=== PATIENT | female | born 1935 | race Caucasian/White ===

== ENCOUNTER 2016-11-24 21:33 | Inpatient (IN) | payer MEDICARE, OTHER ==
[2016-11-24] MEDS ORDERED: ALUMINUM & MAGNESIUM HYDROXIDE 30 ML UD PO ONE (22:22)
[2016-11-24] MEDS ORDERED: PANTOPRAZOLE SODIUM IV 40 MG VIAL IV ONE (22:22)
[2016-11-24] MEDS ORDERED: ONDANSETRON INJ 4 MG/2 ML VIAL IV ONE (22:22)
[2016-11-24] MEDS ORDERED: LACTATED RINGERS 1,000 ML IVS ONE (22:23)
--- NOTE | 2016-11-24 22:52 | RAD ---
EXAM DESCRIPTION: XR ABDOMEN 2 VIEWS SUPINE ERECT CLINICAL HISTORY: n/v COMPARISON: None. FINDINGS: Frontal view of the chest and supine and upright images of the abdomen were submitted. Cardiac silhouette is within normal limits. There is no focal parenchymal or pleural disease. There are old left rib fractures. There is atherosclerosis. Patient is rotated to the left. There is no free air in the abdomen. There is no evidence of bowel obstruction. There are surgical clips within the left upper quadrant and right upper quadrant. Calcifications within the pelvis may represent phleboliths. IMPRESSION: No acute abnormalities. Electronically signed by: Ismael Veliz 11/24/2016 22:49
[2016-11-24] MEDS ORDERED: traMADol HCL 50 MG TAB PO ONE (22:55)
[2016-11-24] MEDS ORDERED: SOD CHL 3% *HYPERTONIC* 500ML 120 ML IVS ONE (22:56)
[2016-11-24] MEDS ORDERED: cefTRIAXone SODIUM 1 GM in SODIUM CHL 0.9% 50ML MIN-BAG+ 50 ML IVPB ONE (22:56)
[2016-11-24] MEDS ORDERED: cefTRIAXone SODIUM 1 GM VIAL ONE (23:06)
[2016-11-24] MEDS ORDERED: SODIUM CHL 0.9% 50ML MIN-BAG+ 50 ML IVPB ONE (23:07)
[2016-11-25] MEDS ORDERED: PROMETHAZINE HCL INJ 25 MG in SODIUM CHLORIDE 0.9% 50ML 50 ML IVPB ONE (00:13)
[2016-11-25] MEDS ORDERED: SODIUM CHLORIDE 0.9% 50ML 50 ML ONE (00:21)
[2016-11-25] MEDS ORDERED: PROMETHAZINE HCL INJ 25 MG/ML VIAL ONE (00:21)
--- NOTE | 2016-11-25 00:39 | ED.PDOC ---
History of Present Illness - General Chief Complaint: GI Problem Stated Complaint: nausea / vomiting Time Seen by Provider: 11/24/16 22:22 Source: patient Exam Limitations: no limitations - History of Present Illness Initial Comments: The patient is a 81-year-old female presenting to the emergency room from clinic. She is presenting with nausea and vomiting approximately 2-3 hours duration. She went to the clinic today secondary to urinary symptoms and was found t have a urinary tract infection. She thinks she is going up more than 15 times. No real abdominal pain just mainly nausea. She does have a very mild headache. No new medication changes otherwise. No fevers. She has had some back pain for the last week bilaterally she is feeling weak in general. No syncope. Timing/Duration: 24 hours Severity: moderate Improving Factors: nothing Worsening Factors: nothing Associated Symptoms: loss of appetite, malaise, nausea/vomiting, weakness Allergies/Adverse Reactions: Allergies Penicillin G Allergy (Verified 11/24/16 22:35) Procaine [From Novocain] Allergy (Verified 11/24/16 22:35) Home Medications: Ambulatory Orders Aspirin [(None)] 81 mg PO DAILY 08/28/13 Conjugated Estrogens [Premarin] 1.25 mg PO DAILY 08/28/13 Cyanocobalamin [Vitamin B 12] 250 mcg PO 08/28/13 Esomeprazole Magnesium [Nexium] 40 mg PO BID 08/28/13 Fexofenadine HCl [Zenaida Allergy] 60 mg PO DAILY 08/28/13 LORazepam [Ativan] 0.5 mg PO PRN PRN 08/28/13 Ropinirole Hydrochloride [Requip] 1 mg PO DAILY 08/28/13 Sucralfate 1 gm PO DAILY 08/28/13 Telmisartan [Micardis] 80 mg PO DAILY 08/28/13 Review of Systems - Review of Systems Constitutional: States: malaise EENTM: States: no symptoms reported Respiratory: States: no symptoms reported Cardiology: States: no symptoms reported Gastrointestinal/Abdominal: States: nausea, vomiting Genitourinary: States: dysuria, frequency Musculoskeletal: States: no symptoms reported Skin: States: no symptoms reported Neurological: States: headache - very mild All other Systems: No Change from Baseline Past Medical History (General) - Patient Medical History Hx Seizures: No Hx Stroke: No Hx Asthma: No Hx of COPD: No Hx Cardiac Disorders: No Hx Congestive Heart Failure: No Hx Pacemaker: No Hx Hypertension: Yes Hx Thyroid Disease: No Hx Diabetes: No Hx Renal Disease: No Hx MRSA: No Surgical History: appendectomy, cholecystectomy, Hysterectomy - Vaccination History Hx Tetanus, Diphtheria Vaccination: No Hx Influenza Vaccination: Yes Hx Pneumococcal Vaccination: Yes Immunizations Up to Date: Yes - Social History Hx Alcohol Use: No Hx Substance Use Treatment: Yes - Female History Patient is a Female of Child Bearing Age (10 -59 yrs old): No Family Medical History - Family History Mother Family History: No Known Age (years): 83 Living Status: Cause of : old age Hx Cardiac Disease: Yes Physical Exam - Physical Exam General Appearance: Alert, No apparent distress Eye Exam: bilateral normal Ears, Nose, Throat: normal ENT inspection, normal pharynx - mildly dry Neck: non-tender, full range of motion, supple Respiratory: chest non-tender, lungs clear, normal breath sounds, no respiratory distress, no accessory muscle use Cardiovascular/Chest: normal peripheral pulses, regular rate, rhythm, no edema Peripheral Pulses: radial,right: 2+, radial,left: 2+ Gastrointestinal/Abdominal: non tender, soft Rectal Exam: deferred Back Exam: normal inspection, no CVA tenderness Extremity: normal range of motion, non-tender, normal inspection, no pedal edema , normal capillary refill Neurologic: alert, normal mood/affect, oriented x 3 Skin Exam: normal color Comments: Vital Signs - 24 hr 11/24/16 11/24/16 21:56 22:12 Temperature 97.4 F L Pulse Rate [ 84 84 Left Radial] Respiratory 20 20 Rate Blood Pressure 164/67 [Left Arm] O2 Sat by Pulse 96 Oximetry Progress - Progress Progress: 11/25/16 00:40 the patient is a 81-year-old female presenting to the emergency room secondary to nausea and vomiting with a known urinary tract infection. She is found to have significant hyponatremia and hypochloremia. She has received a liter of IV fluids and is starting to receive low-flow hypertonic saline for a total of 120 cc. She will need a repeat Chem-8 in the morning. Symptoms are most likely due to this however she may very well have pyelonephritis. She has been started on Rocephin IV. Zofran and Phenergan are being used to control nausea. GI medications otherwise have been given. Admit for continuation of care. Patient is mildly dehydrated. No evidence of overt sepsis at this time. - Results/Orders Results/Orders: Laboratory Tests 11/24/16 11/24/16 22:00 22:32 WBC 9.2 RBC 4.12 L Hgb 12.1 Hct 35.8 L MCV 87.1 MCH 29.3 MCHC 33.8 RDW 13.1 Plt Count 253 MPV 8.8 Absolute Neuts (auto) 7.40 H Absolute Lymphs (auto) 1.40 Absolute Monos (auto) 0.40 Absolute Eos (auto) 0.00 Absolute Basos (auto) 0.00 Neutrophils % 79.9 H Lymphocytes % 15.3 L Monocytes % 4.3 Eosinophils % 0.2 L Basophils % 0.3 PT 10.0 INR 0.880 PTT (SP) 29.5 Sodium 119 L* Potassium 4.3 Chloride 86 L Carbon Dioxide 24 Anion Gap 13.3 BUN 8 Creatinine < 0.40 L BUN/Creatinine Ratio 20.0 Random Glucose 117 H Serum Osmolality 237.8 L* Calcium 8.7 Magnesium 1.5 L Total Bilirubin 0.7 AST 25 ALT 17 Alkaline Phosphatase 88 Creatine Kinase 88 CK-MB (CK-2) 4.4 CK-MB (CK-2) % Not Reportable Troponin I < 0.02 Serum Total Protein 6.8 Albumin 3.7 Globulin 3.1 Albumin/Globulin Ratio 1.2 Amylase 86 Lipase 22 Urine Color Yellow Urine Appearance Sl cloudy Urine pH 7.5 Ur Specific [place] 1.025 Urine Protein Negative Urine Glucose (UA) Negative Urine Ketones 80 H Urine Blood Small H Urine Nitrite Positive H Urine Bilirubin Negative Urine Urobilinogen 0.2 Ur Leukocyte Esterase Negative Urine RBC 3-5 H Urine WBC 30-40 H Ur Epithelial Cells 3-5 Urine Bacteria 4+ H abdominal x-ray shows no acute abnormalities. Departure - Departure Clinical Impression: Hyponatremia, Pyelonephritis, acute, Dehydration Vomiting Qualifiers: Vomiting type: unspecified Vomiting Intractability: non-intractable Nausea presence: with nausea Qualifier Code: (R11.2) Nausea with vomiting, unspecified Disposition: Admit Patient Home Medications: Ambulatory Orders Aspirin [(None)] 81 mg PO DAILY 08/28/13 Conjugated Estrogens [Premarin] 1.25 mg PO DAILY 08/28/13 Cyanocobalamin [Vitamin B 12] 250 mcg PO 08/28/13 Esomeprazole Magnesium [Nexium] 40 mg PO BID 08/28/13 Fexofenadine HCl [Zenaida Allergy] 60 mg PO DAILY 08/28/13 LORazepam [Ativan] 0.5 mg PO PRN PRN 08/28/13 Ropinirole Hydrochloride [Requip] 1 mg PO DAILY 08/28/13 Sucralfate 1 gm PO DAILY 08/28/13 Telmisartan [Micardis] 80 mg PO DAILY 08/28/13 Decision To Admit - Decistion To Admit Decision to Admit Reason: Medical Nature Decision to Admit Date: 11/25/16 Decision to Admit Time: 00:42
--- NOTE | 2016-11-25 00:59 | HP ---
SUPERVISING PHYSICIAN: Joe Carballo MD CHIEF COMPLAINT: Nausea and vomiting, low back pain. HISTORY OF PRESENT ILLNESS: This is a 81-year-old, female patient who presented to the Emergency Room. She had been seen in the clinic earlier in the day and was diagnosed with a urinary tract infection and had been given Zofran and Cipro. She was unable to picker and sorter load and unload her Zofran prescription due to cost , but she did get one dose of Cipro in. She had had some back pain around [place], but she thought that was more due to over exertion, but her back has really hurt for the last two to three days and she that is why she went to the clinic earlier on the day prior to admission. After she was in the clinic, her nausea progressively worsened to the point that she had vomited three or four times. She also became very weak. She has had issues in the past with nausea and vomiting when she had a urinary tract infection. In the Emergency Room, she was found to have a urinary tract infection on laboratory exam with positive urine nitrites, small amount of urine blood, 3 to 5 urine RBCs, 30 to 40 urine WBCs and 4+ urine bacteria. Labs showed white count 9.2 with a left shift, hemoglobin 12.1, hematocrit 35.8. Sodium 119, chloride 86, creatinine less than 0.4, serum osmolality 237.8, magnesium 1.5. She was given some 3% saline in the Emergency Room. She was also treated with Rocephin as well as 1 liter of fluid. She was also given Zofran. I was called for admission to the hospital. PAST MEDICAL HISTORY: 1. Gastroesophageal reflux disease. 2. Hypertension. 3. Questionable diastolic heart failure, but her ejection fraction in 2013 was 65%. 4. Osteopenia. 5. Vitamin B12 deficiency. 6. Restless leg syndrome. PAST SURGICAL HISTORY: 1. Appendectomy. 2. Hysterectomy. 3. Cholecystectomy. 4. Bladder suspension. 5. Unknown "stomach wrap" in 2000. OUTPATIENT MEDICATIONS: Per the electronic medical record and awaiting verification. ALLERGIES: NOVOCAIN, PENICILLINS. CODE STATUS: Full code. FAMILY HISTORY: Noncontributory. SOCIAL HISTORY: She is . She smokes two to three cigarettes daily and has for many years. She drinks approximately one drink alcoholic beverage per month. She denies any illicit drug use. REVIEW OF SYSTEMS: GENERAL: Complains of fatigue. Denies fever or weight changes. HEENT: Complains of occasional seasonal allergy symptoms, but denies ear pain, vision changes, or sore throat. RESPIRATORY: Denies wheezing, coughing or shortness of breath. CARDIAC: Denies chest pain, palpitations or tachycardia. GASTROINTESTINAL: As per history of present illness. GENITOURINARY: Complains of dysuria, polyuria and hematuria. MUSCULOSKELETAL: Complains of low back pain. Denies arthralgias, myalgias. SKIN: Denies lesions or rashes. NEUROLOGIC: Complains of headache. Denies dizziness or seizures. PHYSICAL EXAMINATION: VITAL SIGNS: Afebrile. Pulse 76. Blood pressure 95/53. Respirations 18. O2 94% on room air. GENERAL: This is a 81-year-old, female patient who is lying in her hospital bed. She is in no acute distress. HEENT: Normocephalic, atraumatic. Pupils are equal and reactive. Oropharynx is clear. Oral mucous membranes are somewhat dry. NECK: Supple without mass. RESPIRATORY: Clear to auscultation bilaterally. CHEST: There is equal rise and fall of the chest with inspiration and expiration. CARDIAC: Regular rate and rhythm. ABDOMEN: Soft. Very mildly tender diffusely, nondistended. Bowel sounds are positive. BACK: Exam is normal, no CVA tenderness. EXTREMITIES: No cyanosis, clubbing or edema. Pedal pulses are palpable bilaterally. NEUROLOGIC: Awake, alert and oriented times three. SKIN: No lesions or rashes. Skin turgor is somewhat poor. LABORATORY: AM labs showed sodium improve slightly to 121 and chloride is now 91. Serum osmolality is now 241.6. Calcium 8.2, magnesium now 2.6. Chest x- ray shows new bilateral pleural effusions with emphysematous changes to the chest with chronic appearing interstitial changes in the lung bases. Abdominal x-ray shows no acute abnormalities. All other labs and films have been reviewed via the EMR. ASSESSMENT: 1. Pyelonephritis. 2. Nausea and vomiting, mostly likely to #1. 3. Hyponatremia. 4. Hypochloremia. 5. Chronic obstructive pulmonary disease in a chronic smoker. 6. Hypertension. 7. Restless leg syndrome. 8. Bilateral small pleural effusions per x-ray, PLAN: We will admit the patient to the hospital. She will be NPO until she can tolerate some ice chips. As we advance her diet, we will put her on a fluid restriction. I have also started Rocephin for her urinary tract infection. We will monitor cultures as they become available. She also has Protonix for ulcer prophylaxis as well as Lovenox for DVT prophylaxis. I will continue to give her normal saline and IV fluids. We will recheck her sodium this afternoon as well as tomorrow morning. At this point, her lungs sound clear, but may need to do a chest x-ray in the next day or two since she has small bilateral pleural effusions. We will encourage good pulmonary toilet. Encourage smoking cessation. We will continue to monitor the patient closely and follow as needed. #[id number] [facility]
[2016-11-25] MEDS ORDERED: HYDROcodone 5MG/APAP 325MG 1 EA TAB PO PRN (01:18)
[2016-11-25] MEDS ORDERED: ALBUTEROL SULFATE 2.5 MG/3 ML VIAL NEB PRN (01:18)
[2016-11-25] MEDS ORDERED: ONDANSETRON INJ 4 MG/2 ML VIAL IV PRN (01:18)
[2016-11-25] MEDS ORDERED: ACETAMINOPHEN 325 MG TAB PO PRN (01:18)
[2016-11-25] MEDS ORDERED: IV SET AND CAP CHANGE INJ INJ SCH (01:30)
[2016-11-25] MEDS ORDERED: SODIUM CHL 0.9% 50ML MIN-BAG+ 50 ML IVPB ONE ×3 (03:48→20:16)
[2016-11-25] MEDS ORDERED: cefTRIAXone SODIUM 1 GM VIAL ONE ×3 (03:48→20:16)
[2016-11-25] MEDS: SODIUM CHLORIDE 0.9% 1000ML 1,000 ML IVS PRN ×3 (03:49→21:57)
[2016-11-25] MEDS: cefTRIAXone SODIUM 1 GM in SODIUM CHL 0.9% 50ML MIN-BAG+ 50 ML IVPB SCH ×2 (03:50→15:49)
[2016-11-25] MEDS ORDERED: MAGNESIUM SULFATE PREMIX 2GM 2 GM in PREMIX BAG 1 BAG IVPB ONE (06:44)
[2016-11-25] MEDS ORDERED: MAGNESIUM SULFATE PREMIX 2GM 50 ML IVPB ONE (07:24)
--- NOTE | 2016-11-25 07:36 | RAD ---
EXAM DESCRIPTION: XR CHEST 2 VIEWS CLINICAL HISTORY: cough COMPARISON: November 06, 2010 FINDINGS: Two-view chest x-ray shows cardiomediastinal silhouette to be mildly enlarged without pulmonary vascular congestion. The lungs are hyperinflated with chronic appearing increased interstitial markings more prominent in the lower lung mathis similar to previous exam. Mild blunting of the posterior costophrenic angles is seen new from previous exam. Moderate degenerative changes of the spine are seen. Remote left-sided rib fractures are noted. IMPRESSION: New small bilateral pleural effusions are seen. Emphysematous changes to the chest are noted with chronic appearing interstitial changes in the lung bases. Electronically signed by: Don Martin MD 11/25/2016 07:33
[2016-11-25] MEDS: ALBUTEROL SULFATE 2.5 MG/3 ML VIAL NEB SCH ×4 (08:31→20:14)
[2016-11-25] MEDS: ENOXAPARIN SODIUM 40 MG/0.4 ML SYG SUBCU SCH (13:09)
[2016-11-25] MEDS: PANTOPRAZOLE SODIUM IV 40 MG VIAL IV SCH (13:09)
[2016-11-25] MEDS ORDERED: ALUMINUM & MAGNESIUM HYDROXIDE 30 ML UD PO PRN (18:23)
[2016-11-25] MEDS ORDERED: LEVALBUTEROL NEBS 1.25 MG/3 ML VIAL NEB PRN (20:09)
[2016-11-25] MEDS: SODIUM CHLORIDE 0.9% (FLUSH) 10 ML SYG IV PRN (20:52)
[2016-11-26] MEDS ORDERED: LORazepam 0.5 MG TAB PO PRN (02:00)
[2016-11-26] MEDS: cefTRIAXone SODIUM 1 GM in SODIUM CHL 0.9% 50ML MIN-BAG+ 50 ML IVPB SCH ×2 (04:12→16:01)
--- NOTE | 2016-11-26 04:53 | PCM.CORE ---
Physician DVT/VTE - Prophylaxis Currently: Patient already on anticoagulation therapy - Nurse DVT Assessment & Total Each Risk Factor Represents 3 Points: Age over 75 years DVT Assessment Score: 3 - 3-4 High Risk Treatments: Early Ambulation *, Sequential Compression Device
[2016-11-26] MEDS: SODIUM CHLORIDE 0.9% 1000ML 1,000 ML IVS PRN ×2 (06:11→13:40)
[2016-11-26] MEDS ORDERED: SODIUM CHL 0.9% 50ML MIN-BAG+ 50 ML IVPB ONE ×2 (12:10→19:40)
[2016-11-26] MEDS ORDERED: cefTRIAXone SODIUM 1 GM VIAL ONE ×2 (12:10→19:40)
[2016-11-26] MEDS: ENOXAPARIN SODIUM 40 MG/0.4 ML SYG SUBCU SCH (12:16)
[2016-11-26] MEDS: SODIUM CHLORIDE 0.9% (FLUSH) 10 ML SYG IV SCH ×2 (12:21→20:47)
--- NOTE | 2016-11-26 18:47 | PN ---
DATE: 11/26/16 SUPERVISING PHYSICIAN: Chapo Carballo M.D. SUBJECTIVE: The patient looks well this morning. She feels like she is doing much better. She does continue to have some weakness but has not had any nausea or vomiting, and she remains afebrile. OBJECTIVE: VITAL SIGNS: T max 98.6, pulse 74, blood pressure 139/69, respirations 18 showing 95% saturation on room air. I's and O's show a negative balance of 1750, however she has had 5050 out with 3300 in and taking adequate p.o. fluids. Her weight shows to be down from admission of 59.8 to 59.6 today. GENERAL: The patient is resting in bed in no distress. Said she has not had any more nausea. No abdominal discomfort. No CVA tenderness is reported. CHEST: Lungs are clear to auscultation bilaterally. HEART: Regular rate and rhythm. ABDOMEN: Soft, non-tender with positive bowel sounds. EXTREMITIES: No clubbing, cyanosis or edema. NEUROLOGIC: She is alert and oriented times three. LABORATORY: White count is stable at 5.6, hemoglobin and hematocrit 10.5 and 31.3, platelet count is within normal limits at 252,000. Differential shows to be without any shift compared to admission. Chemistries now show a normalized sodium 142 from admission of 119 with potassium being normal at 4.4, chloride is slightly elevated at 113 with BUN 7, creatinine 0.54 with glucose 103, calcium 8.6. Liver functions show to be within normal limits. MICROBIOLOGY: Urine culture collected in the clinic on 11/24, final culture shows a Klebsiella pneumoniae which is sensitive to everything except Ampicillin and Macrobid. Urine culture on admission, final culture shows insignificant normal freddy count. ASSESSMENT: 1. Acute urinary tract infection with concerns for pyelonephritis with initial culture results showing Klebsiella pneumoniae having been treated with Cipro p.o., however, the patient was unable to fully complete therapy requiring parenteral antibiotics to include Rocephin with sensitivity showing sensitive to first, second and third generation cephalosporins with the patient showing some clinical improvement, however requirements for an additional 24 hours of antibiotic therapy prior to transition back to p.o. medication. 2. Nausea and vomiting likely secondary to his underlying urinary tract infection for concern for pyelonephritis. 3. Symptomatic hyponatremia with nausea and vomiting, and weakness on admission now resolved after IV therapy with 3% saline and continued normal saline infusions. 4. Hypochloremia, resolved, now demonstrating hyperchloremia secondary to recent normal saline infusions. 5. Chronic obstructive pulmonary disease in a chronic smoker, stable. 6. Hypertension, stable. 7. Restless leg syndrome. 8. Bilateral small pleural effusions seen on x-ray at time of admission with the patient being asymptomatic. PLAN: The patient will benefit from an additional 24 hours of parenteral antibiotics to include Rocephin and saline locked, and slowly advanced on a diet. She will remain on fluid restriction now that she is adequately rehydrated despite showing a negative fluid balance, but is now adequately taking p.o. medications. She is going to be saline locked and closely monitored. Will encourage continued pulmonary toiletry and smoking cessation. Anticipate transitioning the patient from parenteral antibiotics to p.o. antibiotics in the morning based off sensitivity results and with anticipation at discharge to continue on outpatient treatment therapy. Until then, will continue to monitor the patient closely and treat appropriately. #[id number] [facility]
[2016-11-26] MEDS ORDERED: PANTOPRAZOLE SODIUM TAB 40 MG PO ONE (19:40)
[2016-11-27] MEDS: cefTRIAXone SODIUM 1 GM in SODIUM CHL 0.9% 50ML MIN-BAG+ 50 ML IVPB SCH (03:37)
[2016-11-27] MEDS: SODIUM CHLORIDE 0.9% (FLUSH) 10 ML SYG IV PRN (03:40)
[2016-11-27] MEDS ORDERED: PANTOPRAZOLE SODIUM TAB 40 MG PO SCH (06:30)
[2016-11-27] MEDS ORDERED: SODIUM CHL 0.9% 50ML MIN-BAG+ 0 ML IVPB ONE (07:22)
[2016-11-27] MEDS ORDERED: cefTRIAXone SODIUM 1 GM VIAL ONE (07:22)
[2016-11-27] MEDS: SODIUM CHLORIDE 0.9% (FLUSH) 10 ML SYG IV SCH (09:10)
[2016-11-27 10:20] VITALS: BP 154/77; TEMP 97.9; O2SAT 94
--- NOTE | 2016-11-27 16:51 | DS ---
SUPERVISING PHYSICIAN: [place] Lopez M.D. DISCHARGE DIAGNOSIS: 1. Acute urinary tract infection initially with concerns for pyelonephritis on admission with culture results showing final to be with Klebsiella pneumoniae having been treated with Cipro p.o., with the patient unable to fully complete therapy secondary to nausea and vomiting requiring admission for parenteral antibiotics to include Rocephin with the patient showing good clinical improvement and toleration of antibiotic therapy with the patient being transitioned to p.o. Keflex at time of discharge with no evidence of any pyelonephritis with the patient having no CVA tenderness. She remained afebrile and was showing good clinical improvement. 2. Nausea and vomiting prior to admission felt to be secondary to an underlying either urinary tract infection or possible gastroenteritis versus complications or exacerbation of gastroesophageal reflux disease or secondary to severe hyponatremia. 3. Symptomatic hyponatremia with nausea and vomiting, and weakness on admission questionable secondary to dehydration versus acute excessive water intake with the patient attempting to rehydrate with the onset of nausea and vomiting resolved after IV therapy including 3% saline given in the E. R. and continued IV therapy prior to discharge with the patient transitioned to p.o. fluids without any complications. 4. Hypochloremia secondary to dehydration showing good resolution after normal saline infusions. 5. Chronic obstructive pulmonary disease in a chronic smoker, stable. 6. Hypertension, stable. 7. Restless leg syndrome. 8. Bilateral small pleural effusions seen on x-ray at time of admission with the patient being asymptomatic requiring close followup in the outpatient setting. HISTORY OF PRESENT ILLNESS: Ms. Obrien is a 81-year-old female patient of Dr. Obando that presented to the Emergency Department after she had been seen in the clinic earlier the day of admission and was diagnosed with a urinary tract infection and had been given Zofran and Cipro. 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 She did have some nausea after starting Cipro prior to admission. She had had some back pain around [place] which she thought that was due to over exertion, but her back had really hurt in the last two to three days prior to admission and that is why she presented to the clinic. After she was seen in clinic, her nausea progressively worsened to the point that she had vomited three or four times. She became very weak and has had issues in the past with nausea and vomiting when she had a urinary tract infection. In the Emergency Room, she was found to have a urinary tract infection with laboratory exam with positive urine nitrites, small amount of blood, 3 to 5 urine RBCs, 30 to 40 WBCs and 4+ bacteria. White count showed to be normal with a left shift. She was also noted to have severe hyponatremia with sodium of 119, magnesium was normal at 1.5, serum osmolality 237. She was given 3% saline in the Emergency Room and then started on Rocephin, and admitted to the Medical/Surgical floor for continued treatment and evaluation. LABORATORY: Initial white count was 9.2, at time of discharge was 7.8, hemoglobin and hematocrit were stable at discharge at 10.4 and 31.1, platelet count 240,000. Initial differential did show a left shift. This resolved after treatment and was normal at discharge. Coagulation studies showed to be normal PT and PTT. Chemistries initially on admission did show low sodium at 119 but potassium was 4.3, BUN 8, creatinine less than 0.4 with serum osmolality 237. After treatment with 3% saline and normal saline infusions and a fluid restriction for close I's and O's, the patient's sodium did return to normal and at time of discharge was 135 with potassium 4.2, BUN 6, creatinine 0.4, serum osmolality 267, magnesium 1.5 after replacement and had improved to 2.6. Cardiac enzymes showed to be negative and was less than 0.02, troponin and liver functions all showed to be within normal limits. Urine did show 80 of ketones, small amount of blood, positive nitrites and microscopic exam indicating 3 to 5 RBCs, 30 to 40 WBCs, 3 to 5 epithelials with 4+ bacteria. MICROBIOLOGY: Urine culture final results showing insignificant colony count of mixed freddy. Review of previous records prior to admission from a culture that was obtained in the clinic did show Klebsiella pneumoniae on final report with a sensitivity pattern showing sensitive to all antibiotics except Ampicillin and Macrobid. RADIOLOGY: Abdominal x-ray in the Emergency Department prior to admission per radiology interpretation showed no acute abnormalities. Chest x-ray again per radiology interpretation prior to admission showed small bilateral pleural effusions with emphysematous changes to the chest with chronic appearing interstitial changes of the lung bases. HOSPITAL COURSE: Ms. Obrien is a 81 year-old female patient that was admitted on 11/25/16 from the Emergency Department for severe hyponatremia, weakness and an underlying urinary tract infection with nausea and vomiting as noted in the History of Present Illness. She was given 3% saline in the Emergency Department prior to admission to the floor. This was continued with a normal saline infusion at 125. Her labs did normalize with her showing a positive balance at time of discharge with 857 positive with a total output of 403 and intake of 1260. Previous to that day, she did have a total of 3300 out and 5050 out showing to be more euvolemic at time of discharge and stable. She was started on Rocephin for the underlying urinary tract infection and given Zofran and Phenergan for nausea as needed. She did show good clinical improvement and was felt clinically improved well enough to be discharged to continue with treatment of her underlying urinary tract infection in the outpatient setting. PLAN: The patient was discharged on 11/27/16 to have close clinical followup with her primary care provider, Dr. Carballo, in 7 to 10 days. She was to resume all of her home medications as instructed except the noted changes in her medication regimen including new antibiotics, Keflex, and she was to stop taking Cipro, and take her antibiotics to completion. She was encouraged to take adequate fluids but to be cautious of total daily fluid intake to prevent fluid overload and possible low sodium. She was encouraged to return to the hospital should she have return of her symptoms or no improvement. She was discharged with new prescriptions to include: 1. Promethazine 12.5 mg every 4 hours as needed for nausea, #15. 2. Keflex 500 mg twice daily, #14. She was discharged in stable condition. #[id number] [facility]
[2016-12-15] MEDS: PANTOPRAZOLE SODIUM IV 40 MG VIAL IV SCH (14:39)
== END 2016-11-27 11:41 | disposition home or self-care (01) | DRG 690 ==
LOC: ER 21:33 → MS 11-25 00:58
PROVIDERS: ADMIT Nurse Practitioner Acute Care; ATTEND Nurse Practitioner Family
DX: N39.0 Urinary tract infection, site not specified (principal); E87.1 Hypo-osmolality and hyponatremia; J90 Pleural effusion, not elsewhere classified; E86.0 Dehydration; B96.1 Klebsiella pneumoniae [K. pneumoniae] as the cause of diseases classified elsewhere; K52.9 Noninfective gastroenteritis and colitis, unspecified; K21.9 Gastro-esophageal reflux disease without esophagitis; E87.8 Other disorders of electrolyte and fluid balance, not elsewhere classified; J44.9 Chronic obstructive pulmonary disease, unspecified; F17.210 Nicotine dependence, cigarettes, uncomplicated; I10 Essential (primary) hypertension; G25.81 Restless legs syndrome; Z16.11 Resistance to penicillins; M85.80 Other specified disorders of bone density and structure, unspecified site; E53.8 Deficiency of other specified B group vitamins; Z88.0 Allergy status to penicillin; Z88.4 Allergy status to anesthetic agent; Z79.82 Long term (current) use of aspirin; Z79.899 Other long term (current) drug therapy

== ENCOUNTER → 2017-03-24 | Outpatient (CLI) | payer MEDICARE | END | disposition home or self-care (01) | LOC: GMAM 11:15 | PROVIDERS: ATTEND Family Medicine | DX: D51.9 Vitamin B12 deficiency anemia, unspecified (principal); F41.1 Generalized anxiety disorder ==

== ENCOUNTER → 2017-05-31 | Outpatient (CLI) | payer MEDICARE, OTHER | LOC: GMA 17:59 | PROVIDERS: ATTEND Nurse Practitioner Family | DX: N30.00 Acute cystitis without hematuria (principal) ==

== ENCOUNTER → 2017-09-08 | Outpatient (CLI) | payer MEDICARE, OTHER | END | disposition home or self-care (01) | LOC: GMAM 11:22 | PROVIDERS: ATTEND Family Medicine | DX: D51.9 Vitamin B12 deficiency anemia, unspecified (principal) ==

== ENCOUNTER → 2017-09-13 | Outpatient (CLI) | payer MEDICARE, OTHER | END | disposition home or self-care (01) | LOC: GMAM 16:46 | PROVIDERS: ATTEND Family Medicine | DX: D64.9 Anemia, unspecified (principal) ==

== ENCOUNTER 2017-12-29 23:54 | Emergency (ER) | payer MEDICARE, OTHER ==
[2017-12-30] MEDS ORDERED: LORazepam 0.5 MG TAB PO ONE (00:10)
[2017-12-30] MEDS ORDERED: ONDANSETRON ODT 8 MG TAB SL ONE (00:10)
--- NOTE | 2017-12-30 00:14 | ED.PDOC ---
History of Present Illness - General Chief Complaint: General Stated Complaint: feels gittery, nausea and lugo Time Seen by Provider: 12/29/17 23:57 Source: patient Exam Limitations: no limitations - History of Present Illness Initial Comments: Patient presents feeling jittery since this morning. She has also had nausea this evening She says that she stopped Buspar two days ago and started taking duloxetine today. She has had no rashes nor dyspnea. She says she thinks she has COPD. Has a headache that is intermittent. She describes it as tension and it was at the bridge of her nose then later went to the right temporal area. It has since resolved. Denies any weakness or numbness on any part of her body. Has had previous episodes and has taken lorazepam for those. No other complaints. Timing/Duration: intermittent, other - over the past 12-16 hours Severity: mild Improving Factors: nothing Worsening Factors: nothing Associated Symptoms: denies symptoms, other - see HPI Allergies/Adverse Reactions: Allergies Penicillin G Allergy (Verified 11/24/16 22:35) Procaine [From Novocain] Allergy (Verified 11/24/16 22:35) Home Medications: Ambulatory Orders Aspirin [Baby Aspirin] 81 mg PO DAILY 08/28/13 Telmisartan [Micardis] 80 mg PO DAILY 08/28/13 Buspirone HCl 5 mg PO TID 11/25/16 Hydroxyzine HCl 25 mg PO PRN PRN 11/25/16 Ropinirole Hydrochloride [Ropinirole HCl] 1 mg PO TID 11/25/16 Promethazine HCl 12.5 mg PO Q4HR PRN #15 tab 11/27/16 Duloxetine HCl 30 mg PO DAILY 12/30/17 Esomeprazole Magnesium [Nexium] 40 mg PO BID 12/30/17 Estrogens, Conjugated [Premarin] 1.25 mg PO DAILY 12/30/17 LORazepam [Ativan] 1 tablet PO TID PRN 12/30/17 Past Medical History (General) - Patient Medical History Hx Seizures: No Hx Stroke: No Hx Asthma: No Hx of COPD: Yes Hx Cardiac Disorders: No Hx Congestive Heart Failure: No Hx Pacemaker: No Hx Hypertension: Yes Hx Thyroid Disease: No Hx Diabetes: No Hx Gastroesophageal Reflux: No Hx Renal Disease: No Hx MRSA: No - Vaccination History Hx Tetanus, Diphtheria Vaccination: No Hx Influenza Vaccination: No Hx Pneumococcal Vaccination: Yes Immunizations Up to Date: Yes - Social History Hx Alcohol Use: No Hx Substance Use: No Hx Substance Use Treatment: Yes Hx Depression: Yes Hx Physical Abuse: No Hx Emotional Abuse: No - Female History Patient is a Female of Child Bearing Age (10 -59 yrs old): No Family Medical History - Family History Mother Family History: No Known Age (years): 83 Living Status: Cause of : old age Hx Cardiac Disease: Yes Physical Exam - Physical Exam General Appearance: Alert Eye Exam: bilateral normal Ears, Nose, Throat: normal ENT inspection Neck: non-tender, full range of motion, supple Respiratory: chest non-tender, lungs clear Cardiovascular/Chest: normal peripheral pulses, regular rate, rhythm, no edema Gastrointestinal/Abdominal: normal bowel sounds, non tender, soft Extremity: normal range of motion, non-tender, normal inspection Neurologic: commercial production editor II-XII nml as tested, no motor/sensory deficits, alert Skin Exam: normal color Lymphatic: no adenopathy Progress - Progress Progress: 12/30/17 03:22 Laboratory Tests 12/30/17 12/30/17 12/30/17 00:40 00:40 00:45 WBC 7.8 RBC 4.12 L Hgb 12.4 Hct 36.6 MCV 88.7 MCH 30.0 MCHC 34.0 RDW 13.9 Plt Count 255 MPV 8.8 Absolute Neuts (auto) 6.10 Absolute Lymphs (auto) 1.20 Absolute Monos (auto) 0.40 Absolute Eos (auto) 0.00 Absolute Basos (auto) 0.10 Neutrophils % 78.6 H Lymphocytes % 15.8 L Monocytes % 4.5 Eosinophils % 0.2 L Basophils % 0.9 Sodium 124 L Potassium 4.0 Chloride 91 L Carbon Dioxide 22 Anion Gap 15.0 BUN 11 Creatinine 0.53 L BUN/Creatinine Ratio 20.8 H Random Glucose 141 H Serum Osmolality 251.4 L* Calcium 8.9 Total Bilirubin 0.5 AST 21 ALT 18 Alkaline Phosphatase 75 Serum Total Protein 7.2 Albumin 3.8 Globulin 3.4 Albumin/Globulin Ratio 1.1 Lipase 16 L Urine Color Urine Appearance Urine pH Ur Specific [place] Urine Protein Urine Glucose (UA) Urine Ketones Urine Blood Urine Nitrite Urine Bilirubin Urine Urobilinogen Ur Leukocyte Esterase Urine RBC Urine WBC Ur Epithelial Cells Urine Bacteria Hyaline Casts Urine Mucus Urine Opiates Screen Negative Urine Barbiturates Negative Ur Phencyclidine Scrn Negative U Amphetamin/Meth Scrn Negative U Benzodiazepines Scrn Negative U Cocaine Metab Screen Negative U Cannabinoids Screen Negative 12/30/17 00:45 WBC RBC Hgb Hct MCV MCH MCHC RDW Plt Count MPV Absolute Neuts (auto) Absolute Lymphs (auto) Absolute Monos (auto) Absolute Eos (auto) Absolute Basos (auto) Neutrophils % Lymphocytes % Monocytes % Eosinophils % Basophils % Sodium Potassium Chloride Carbon Dioxide Anion Gap BUN Creatinine BUN/Creatinine Ratio Random Glucose Serum Osmolality Calcium Total Bilirubin AST ALT Alkaline Phosphatase Serum Total Protein Albumin Globulin Albumin/Globulin Ratio Lipase Urine Color Yellow Urine Appearance Clear Urine pH 6.5 Ur Specific [place] 1.025 Urine Protein Trace Urine Glucose (UA) Negative Urine Ketones 80 H Urine Blood Negative Urine Nitrite Negative Urine Bilirubin Negative Urine Urobilinogen 0.2 Ur Leukocyte Esterase Negative Urine RBC 0 Urine WBC 0-1 Ur Epithelial Cells 5-10 Urine Bacteria 1+ Hyaline Casts 3-5 Urine Mucus Small Urine Opiates Screen Urine Barbiturates Ur Phencyclidine Scrn U Amphetamin/Meth Scrn U Benzodiazepines Scrn U Cocaine Metab Screen U Cannabinoids Screen Patient given zofran and ativan. Her nausea resolved and her anxiety resolve. She was also given 1 NS. She was without symptoms upon discharge. Departure - Departure Clinical Impression: Anxiety, Nausea Disposition: Discharge to Home or Self Care Condition: Good Departure Forms: ED Discharge - Pt. Copy, Patient Portal Self Enrollment Diet: resume usual diet Activity: increase activity as tolerated Referrals: Chapo Carballo MD [Primary Care Provider] - 1-2 Weeks Home Medications: Ambulatory Orders Aspirin [Baby Aspirin] 81 mg PO DAILY 08/28/13 Telmisartan [Micardis] 80 mg PO DAILY 08/28/13 Buspirone HCl 5 mg PO TID 11/25/16 Hydroxyzine HCl 25 mg PO PRN PRN 11/25/16 Ropinirole Hydrochloride [Ropinirole HCl] 1 mg PO TID 11/25/16 Promethazine HCl 12.5 mg PO Q4HR PRN #15 tab 11/27/16 Duloxetine HCl 30 mg PO DAILY 12/30/17 Esomeprazole Magnesium [Nexium] 40 mg PO BID 12/30/17 Estrogens, Conjugated [Premarin] 1.25 mg PO DAILY 12/30/17 LORazepam [Ativan] 1 tablet PO TID PRN 12/30/17
[2017-12-30] MEDS ORDERED: SODIUM CHLORIDE 0.9% 500ML 500 ML IVS ONE (01:28)
[2017-12-30] MEDS ORDERED: SODIUM CHLORIDE 0.9% 1000ML 1,000 ML ONE (01:28)
[2017-12-30] MEDS ORDERED: SODIUM CHLORIDE 0.9% 1000ML 500 ML IVS ONE (01:43)
[2017-12-30] MEDS ORDERED: ACETAMINOPHEN 325 MG TAB PO ONE (02:08)
[2017-12-30 03:20] VITALS: BP 125/57; O2SAT 93
[2017-12-30 03:46] VITALS: TEMP 96.7
== END 2017-12-30 03:45 | disposition home or self-care (01) ==
LOC: ER 23:54
DX: R11.0 Nausea (principal); F41.9 Anxiety disorder, unspecified; J44.9 Chronic obstructive pulmonary disease, unspecified; I10 Essential (primary) hypertension; Z79.899 Other long term (current) drug therapy; Z79.82 Long term (current) use of aspirin
CPT/HCPCS: 36415; 80053; 80307; 81001; 83690; 85025; J7030

== ENCOUNTER 2018-01-01 20:57 | Emergency (ER) | payer MEDICARE, OTHER ==
[2018-01-01 21:25] VITALS: TEMP 98.8; O2SAT 100
[2018-01-01] MEDS ORDERED: cloNIDine HCL 0.1 MG TAB PO ONE (21:40)
--- NOTE | 2018-01-01 21:48 | ED.PDOC ---
History of Present Illness - General Chief Complaint: Blood Pressure Problem Stated Complaint: high B/P when she checked it at home Time Seen by Provider: 01/01/18 21:27 Source: patient, RN notes reviewed Exam Limitations: no limitations Additional Information: PT HAS CONCERNS ABOUT HER BLOOD PRESSURE SHE IS ON MICARDIS 80 MG SHE ALSO REPORTS ANXIETY SHE WAS RECENTLY TOLD BY HER RISK OFFICER TO DC BUSPAR SHE THINKS SINCE THEN HER BP IS ACTING UP ? HOWEVER SHE HAS NO SYMPTOMS OF DIZZINESS HEADACHE CHEST PAIN SHORTNESS OF BREATH PERIPHERAL EDEMA NUMBNESS WEAKNESS OF ANY EXTREMITY - History of Present Illness Timing/Duration: 24 hours Severity: mild Improving Factors: nothing Associated Symptoms: denies symptoms Allergies/Adverse Reactions: Allergies Penicillin G Allergy (Verified 11/24/16 22:35) Procaine [From Novocain] Allergy (Verified 11/24/16 22:35) Home Medications: Ambulatory Orders Aspirin [Baby Aspirin] 81 mg PO DAILY 08/28/13 Telmisartan [Micardis] 80 mg PO DAILY 08/28/13 Buspirone HCl 5 mg PO TID 11/25/16 Hydroxyzine HCl 25 mg PO PRN PRN 11/25/16 Ropinirole Hydrochloride [Ropinirole HCl] 1 mg PO TID 11/25/16 Promethazine HCl 12.5 mg PO Q4HR PRN #15 tab 11/27/16 Duloxetine HCl 30 mg PO DAILY 12/30/17 Esomeprazole Magnesium [Nexium] 40 mg PO BID 12/30/17 Estrogens, Conjugated [Premarin] 1.25 mg PO DAILY 12/30/17 LORazepam [Ativan] 1 tablet PO TID PRN 12/30/17 Review of Systems - Review of Systems Constitutional: States: no symptoms reported EENTM: States: no symptoms reported Respiratory: States: no symptoms reported Cardiology: States: no symptoms reported Gastrointestinal/Abdominal: States: no symptoms reported Genitourinary: States: no symptoms reported Musculoskeletal: States: no symptoms reported Skin: States: no symptoms reported Neurological: States: no symptoms reported Endocrine: States: no symptoms reported Hematologic/Lymphatic: States: no symptoms reported Past Medical History (General) - Patient Medical History Hx Seizures: No Hx Stroke: No Hx Asthma: No Hx of COPD: Yes Hx Cardiac Disorders: No Hx Congestive Heart Failure: No Hx Pacemaker: No Hx Hypertension: Yes Hx Thyroid Disease: No Hx Diabetes: No Hx Gastroesophageal Reflux: No Hx Renal Disease: No Hx MRSA: No Surgical History: appendectomy, tonsillectomy, Hysterectomy - Vaccination History Hx Tetanus, Diphtheria Vaccination: No Hx Influenza Vaccination: Yes Hx Pneumococcal Vaccination: Yes - Social History Hx Alcohol Use: No Hx Substance Use: No Hx Substance Use Treatment: Yes Hx Depression: Yes Hx Physical Abuse: No Hx Emotional Abuse: No Family Medical History - Family History Mother Family History: No Known Age (years): 83 Living Status: Cause of : old age Hx Cardiac Disease: Yes Physical Exam - Physical Exam General Appearance: Anxious Eye Exam: bilateral normal Ears, Nose, Throat: hearing grossly normal, normal ENT inspection, normal pharynx Neck: non-tender, full range of motion, supple Respiratory: chest non-tender, lungs clear, normal breath sounds, no respiratory distress, no accessory muscle use Cardiovascular/Chest: normal peripheral pulses, regular rate, rhythm, no edema, no gallop Gastrointestinal/Abdominal: normal bowel sounds, non tender, soft Extremity: normal range of motion, non-tender, normal inspection, no pedal edema , no calf tenderness Skin Exam: normal color Departure - Departure Clinical Impression: Hypertension, Anxiety Disposition: Discharge to Home or Self Care Condition: Good Departure Forms: ED Discharge - Pt. Copy, Patient Portal Self Enrollment Diet: resume usual diet Referrals: Chapo Carballo MD [Primary Care Provider] - 1-2 Weeks Home Medications: Ambulatory Orders Aspirin [Baby Aspirin] 81 mg PO DAILY 08/28/13 Telmisartan [Micardis] 80 mg PO DAILY 08/28/13 Buspirone HCl 5 mg PO TID 11/25/16 Hydroxyzine HCl 25 mg PO PRN PRN 11/25/16 Ropinirole Hydrochloride [Ropinirole HCl] 1 mg PO TID 11/25/16 Promethazine HCl 12.5 mg PO Q4HR PRN #15 tab 11/27/16 Duloxetine HCl 30 mg PO DAILY 12/30/17 Esomeprazole Magnesium [Nexium] 40 mg PO BID 12/30/17 Estrogens, Conjugated [Premarin] 1.25 mg PO DAILY 12/30/17 LORazepam [Ativan] 1 tablet PO TID PRN 12/30/17
[2018-01-01 23:30] VITALS: BP 170/75
== END 2018-01-01 22:38 | disposition home or self-care (01) ==
LOC: ER 20:57
DX: I10 Essential (primary) hypertension (principal); F41.9 Anxiety disorder, unspecified; J44.9 Chronic obstructive pulmonary disease, unspecified; Z79.899 Other long term (current) drug therapy; Z79.82 Long term (current) use of aspirin

== ENCOUNTER → 2018-01-03 | Outpatient (CLI) | payer MEDICARE, OTHER | LOC: GMAM 14:53 | PROVIDERS: ATTEND Family Medicine | DX: J30.1 Allergic rhinitis due to pollen (principal) ==

== ENCOUNTER → 2018-06-06 | Outpatient (CLI) | payer MEDICARE, OTHER | LOC: GMAM 14:17 | PROVIDERS: ATTEND Family Medicine | DX: I10 Essential (primary) hypertension (principal); E53.8 Deficiency of other specified B group vitamins ==

== ENCOUNTER 2018-07-04 11:29 | Emergency (ER) | payer MEDICARE, OTHER ==
--- NOTE | 2018-07-04 12:41 | ED.PDOC ---
History of Present Illness - General Chief Complaint: Trauma Stated Complaint: left lower back pain Time Seen by Provider: 07/04/18 12:29 Source: patient, family Exam Limitations: no limitations - History of Present Illness Initial Comments: PT LOST HER BALANCE/SLIPPED/TRIPPED SHE WAS PUSHING HER 'S WHEEL CHAIR. SHE FELL ON WOODEN RAMP. PAIN ON L LUMBAR AREA. NO HEAD COLLISION. DENIES LOC. DECLINES PAIN MEDICATION OFFER. NOTE: PT TAKES REQUIP DOSE AT 1 PM AND REQUESTS IT TO BE GIVEN NOW IN ER, LEST HER RESTLESS LEGS SYNDROME WILL BOTHER HER. Occurred: just prior to arrival Severity: moderate Pain Location: back Method of Injury: fall Improving Factors: rest Worsening Factors: movement Loss of Consciousness: no loss of consciousness Associated Symptoms (Fall): denies symptoms Allergies/Adverse Reactions: Allergies Penicillin G Allergy (Verified 11/24/16 22:35) Procaine [From Novocain] Allergy (Verified 11/24/16 22:35) Home Medications: Ambulatory Orders Aspirin [Baby Aspirin] 81 mg PO DAILY 08/28/13 Telmisartan [Micardis] 80 mg PO DAILY 08/28/13 Ropinirole Hydrochloride [Ropinirole HCl] 1 mg PO TID 11/25/16 Estrogens, Conjugated [Premarin] 1.25 mg PO DAILY 12/30/17 LORazepam [Ativan] 1 tablet PO TID PRN 12/30/17 Omeprazole 20 mg PO BID 07/04/18 Review of Systems - Review of Systems Constitutional: States: no symptoms reported EENTM: States: no symptoms reported Respiratory: States: no symptoms reported Cardiology: States: no symptoms reported Gastrointestinal/Abdominal: States: no symptoms reported Genitourinary: States: no symptoms reported Musculoskeletal: States: see HPI, back pain, muscle stiffness. Denies: neck pain Skin: States: no symptoms reported. Denies: lesions, lumps, rash Neurological: States: no symptoms reported. Denies: paresthesia, weakness Endocrine: States: no symptoms reported Hematologic/Lymphatic: States: no symptoms reported All other Systems: Reviewed and Negative Past Medical History (General) - Patient Medical History Hx Seizures: No Hx Stroke: No Hx Asthma: No Hx of COPD: Yes Hx Cardiac Disorders: No Hx Congestive Heart Failure: No Hx Pacemaker: No Hx Hypertension: Yes Hx Thyroid Disease: No Hx Diabetes: No Hx Gastroesophageal Reflux: No Hx Renal Disease: No Hx MRSA: No Surgical History: tonsillectomy, Hysterectomy - Vaccination History Hx Tetanus, Diphtheria Vaccination: No Hx Influenza Vaccination: Yes Hx Pneumococcal Vaccination: Yes - Social History Hx Tobacco Use: Yes Hx Alcohol Use: No Hx Substance Use: No Hx Substance Use Treatment: Yes Hx Depression: Yes Hx Physical Abuse: No Hx Emotional Abuse: No Family Medical History - Family History Mother Family History: No Known Age (years): 83 Living Status: Cause of : old age Hx Cardiac Disease: Yes Physical Exam - Physical Exam General Appearance: Alert, No apparent distress Head Injury: no evidence of injury Eye Exam: bilateral normal ENT Exam: no evidence of ENT injury, no dental injury Neck Exam: full range of motion, normal inspection Cardiovascular/Respiratory: regular rate, rhythm, no M/R/G Gastrointestinal/Abdominal: normal bowel sounds, non tender, soft Back Exam: normal inspection, no CVA tenderness, no vertebral tenderness - BUT POS L PARASPINOUS LUMBAR MUSCLES MILDLY TTP. HER PAIN IS IN PARASPINOUS, NOT SPINOUS. Extremity Exam: no evidence of injury, normal range of motion, non-tender Neurologic: educational interpreter II-XII nml as tested, no motor/sensory deficits, normal mood/ affect Skin Exam: normal color, warm/dry - [place] Coma Score Best Eye Response ([place]): (4) open spontaneously Best Verbal Response ([place]): (5) oriented Best Motor Response ([place]): (6) obeys commands Frans[place] Total: 15 Progress - Progress Progress: 07/04/18 14:05 LUMBAR X-RAY NEG FOR FRX. POS CHRONIC LEFT L5/S1 FACET ARTHROPATHY AND L4/5 DDD. L PARASPINOUS STRAIN. SAFE FOR DC TO HOME WITH FOLLOW-UP. Departure - Departure Clinical Impression: Lumbar facet arthropathy Strain of lumbar paraspinous muscle Qualifiers: Encounter type: initial encounter Qualified Code(s): S39.012A - Strain of muscle, fascia and tendon of lower back, initial encounter Fall Qualifiers: Encounter type: initial encounter Qualified Code(s): W19.XXXA - Unspecified fall, initial encounter Degenerative joint disease (DJD) of lumbar spine Qualifiers: Spinal osteoarthritis complication: other spinal osteoarthritis Qualified Code( s): M47.896 - Other spondylosis, lumbar region Disposition: Discharge to Home or Self Care Condition: Good Departure Forms: ED Discharge - Pt. Copy, Patient Portal Self Enrollment Instructions: Low Back Pain (DC) Diet: resume usual diet Activity: increase activity as tolerated Referrals: Chapo Carballo MD [Primary Care Provider] - 1-2 Weeks Home Medications: Ambulatory Orders Aspirin [Baby Aspirin] 81 mg PO DAILY 08/28/13 Telmisartan [Micardis] 80 mg PO DAILY 08/28/13 Ropinirole Hydrochloride [Ropinirole HCl] 1 mg PO TID 11/25/16 Estrogens, Conjugated [Premarin] 1.25 mg PO DAILY 12/30/17 LORazepam [Ativan] 1 tablet PO TID PRN 12/30/17 Omeprazole 20 mg PO BID 07/04/18 Additional Instructions: Please go easy for a few days until you are feeling better. Tylenol or ibuprofen are safe to take for discomfort.
[2018-07-04 13:07] VITALS: TEMP 99.1
--- NOTE | 2018-07-04 13:24 | RAD ---
EXAM DESCRIPTION: Lumbar Spine 3 Views CLINICAL HISTORY: LEFT LBP AFTER FALL. COMPARISON: None Available. TECHNIQUE: AP/lateral/coned-down lateral FINDINGS: There is good alignment of the lumbar spine. There is no fracture or bone lesion. Moderate disc space narrowing L4-5. Left side L5-S1 facet arthropathy. IMPRESSION: Disc disease L4-5 Left L5-S1 facet arthropathy Electronically signed by: Kaleb Johnson MD 07/04/2018 1:23 PM CDT
[2018-07-04 14:19] VITALS: BP 158/80; O2SAT 98
== END 2018-07-04 14:19 | disposition home or self-care (01) ==
LOC: ER 11:29
DX: S39.012A Strain of muscle, fascia and tendon of lower back, initial encounter (principal); M47.896 Other spondylosis, lumbar region; M51.36 Other intervertebral disc degeneration, lumbar region; I10 Essential (primary) hypertension; J44.9 Chronic obstructive pulmonary disease, unspecified; F32.9 Major depressive disorder, single episode, unspecified; Z79.82 Long term (current) use of aspirin; Z79.899 Other long term (current) drug therapy; Z87.891 Personal history of nicotine dependence; Z88.0 Allergy status to penicillin; Z88.8 Allergy status to other drugs, medicaments and biological substances; W01.0XXA Fall on same level from slipping, tripping and stumbling without subsequent striking against object, initial encounter; Y93.89 Activity, other specified; Y92.89 Other specified places as the place of occurrence of the external cause

== ENCOUNTER → 2018-08-24 | Outpatient (CLI) | payer MEDICARE, OTHER | LOC: GMATM 14:42 | PROVIDERS: ATTEND Nurse Practitioner Family | DX: N30.00 Acute cystitis without hematuria (principal); R42 Dizziness and giddiness ==

== ENCOUNTER → 2019-01-01 | Outpatient (CLI) | payer MEDICARE, OTHER | LOC: GMAM 14:45 | PROVIDERS: ATTEND Family Medicine | DX: E53.8 Deficiency of other specified B group vitamins (principal) ==

== ENCOUNTER → 2019-04-17 | Outpatient (CLI) | payer MEDICARE, OTHER | LOC: GMAM 13:50 | PROVIDERS: ATTEND Family Medicine | DX: E53.8 Deficiency of other specified B group vitamins (principal); R53.82 Chronic fatigue, unspecified; E55.9 Vitamin D deficiency, unspecified; I10 Essential (primary) hypertension ==

== ENCOUNTER → 2019-07-04 | Outpatient (CLI) | payer MEDICARE, OTHER ==
--- NOTE | 2019-07-05 15:05 | MRI ---
EXAM DESCRIPTION: Cervical Spine: MRI. CLINICAL HISTORY: 84 years Female DISC DISORDER COMPARISON: None. TECHNIQUE: Multiplanar, high-field MRI, multiple sequences, non-contrast Cervical spine. FINDINGS: C3-C4: Normal disc signal and minimal posterior midline bulge not abutting the cord. Canal and neural foramina are patent. C4-C5: Minimal disc desiccation and minimal posterior midline bulge not abutting the cord. Canal and neural foramina are patent. C5-C6: Minimal disc desiccation and disc space loss. 1 mm grade 1 retrolisthesis. Posterior disc bulge abutting the cord in the midline. Posterior bilateral ligament thickening. Borderline mild central canal stenosis. Bilateral mild neural foraminal narrowing. C6-C7: Minimal disc desiccation with disc space preserved. Tiny posterior midline bulge not abutting the cord. Mild canal narrowing with minimal posterior ligament thickening. Bilateral neural foramina are patent. C7-T1: Disc desiccation and posterior midline disc bulge. Hyperintense T2 signal annular fissure posterior midline disc margin. Mild canal narrowing. Bilateral neural foramina are patent. T1-T2: Normal signal in the disc and disc space preserved. Bilateral facet joints with minimal hypertrophic arthrosis. Slight thickening of the posterior ligaments. Mild canal narrowing. Bilateral neural foramina are patent. Normal signal in the C2-C3 disc with no bulging. Disc space preserved. Canal and neural foramina are patent. Facet joints negative. Spinal alignment exaggerated kyphosis. No cord compression or cord edema. Atlantoaxial joint with minimal arthrosis posterior bulging of the anterior ligament. Base of the cerebellar tonsils is above the foramen magnum. Paravertebral soft tissues unremarkable.. Vertebral bodies are not compressed at any level. Normal marrow signal in the remaining vertebral bodies and the posterior elements. IMPRESSION: 1. Posterior disc bulge abutting the cord at C5-C6. Grade 1 retrolisthesis. Posterior ligament thickening. Borderline mild central canal stenosis. Bilateral neural foramina are patent. Facets are unremarkable. 2. Posterior midline C7-T1 disc bulge with annular fissure. No disc protrusion mild canal narrowing. Electronically signed by: Victor Hugo Torres MD 07/05/2019 3:03 PM CDT
== END ==
LOC: MRI 09:02
PROVIDERS: ATTEND Psychiatry & Neurology Neurology
DX: M50.122 Cervical disc disorder at C5-C6 level with radiculopathy (principal); M50.13 Cervical disc disorder with radiculopathy, cervicothoracic region

== ENCOUNTER 2019-08-06 19:26 | Emergency (ER) | payer MEDICARE, OTHER ==
[2019-08-06] MEDS ORDERED: MECLIZINE HCL 12.5 MG TAB PO ONE (19:53)
--- NOTE | 2019-08-06 19:53 | ED.PDOC ---
History of Present Illness - General Chief Complaint: General Stated Complaint: weakness and elevated bp Time Seen by Provider: 08/06/19 19:52 - History of Present Illness Initial Comments: chief complaint elevated blood pressure, dizziness 84-year-old female has a past medical history presents to ED complaining of not feeling well with dizzineht. Patient her blood p noting it to be 200 systolic which concer Patient endorses compliance with her blood pressure medications and didn't estela her nighttime dose one to 2 hours early decompnsated blood pressure elevation. Patient denies any associated headache, chest pain, palp itations, shortness of breath or chills, nausea vomiting and/or acute changes in bowels or urination. Patient is otherwise healthy with no other signs symptoms or complaints. Patient was requestioned and noted to deny any congestion, rhinorrhea, sinus pain, sore throat, sinus pressure, ear pain or pressure. Allergies/Adverse Reactions: Allergies Penicillin G Allergy (Verified 11/24/16 22:35) Procaine [From Novocain] Allergy (Verified 11/24/16 22:35) Home Medications: Ambulatory Orders RX: Aspirin [Baby Aspirin] 81 mg PO DAILY 08/28/13 RX: Telmisartan [Micardis] 80 mg PO DAILY 08/28/13 RX: Ropinirole Hydrochloride [Ropinirole HCl] 1 mg PO TID 11/25/16 Estrogens, Conjugated [Premarin] 1.25 mg PO DAILY 12/30/17 RX: LORazepam [Ativan] 1 tablet PO TID PRN 12/30/17 RX: Omeprazole 20 mg PO BID 07/04/18 Meclizine HCl [Meclizine 25] 25 - 50 mg PO TID PRN #20 tab 08/06/19 Review of Systems - Review of Systems Constitutional: States: other - does not feel well. Denies: chills, fever EENTM: States: no symptoms reported. Denies: eye pain, blurred vision, ear pain, ear discharge, nose pain, nose congestion, throat pain, throat swelling, mouth pain Respiratory: Denies: cough, orthopnea, short of breath Cardiology: Denies: chest pain, edema, palpitations Gastrointestinal/Abdominal: Denies: abdominal pain, constipation, diarrhea, nausea, vomiting Genitourinary: Denies: dysuria, hematuria Musculoskeletal: Denies: back pain, joint pain Skin: Denies: change in color, rash Neurological: States: other - dizziness. Denies: headache, numbness, tremors Past Medical History (General) - Patient Medical History Hx Seizures: No Hx Stroke: No Hx Asthma: No Hx of COPD: Yes Hx Cardiac Disorders: No Hx Congestive Heart Failure: No Hx Pacemaker: No Hx Hypertension: Yes Hx Thyroid Disease: No Hx Diabetes: No Hx Gastroesophageal Reflux: No Hx Renal Disease: No Hx MRSA: No - Vaccination History Hx Tetanus, Diphtheria Vaccination: No Hx Influenza Vaccination: Yes Hx Pneumococcal Vaccination: Yes - Social History Hx Tobacco Use: Yes Hx Alcohol Use: No Hx Substance Use: No Hx Substance Use Treatment: Yes Hx Depression: Yes Hx Physical Abuse: No Hx Emotional Abuse: No Family Medical History - Family History Mother Family History: No Known Age (years): 85 Living Status: Cause of : old age Hx Cardiac Disease: Yes Physical Exam - Physical Exam General Appearance: Alert, Comfortable Eye Exam: bilateral normal Ears, Nose, Throat: normal ENT inspection Neck: non-tender, full range of motion, supple Respiratory: lungs clear, normal breath sounds, no respiratory distress, no accessory muscle use, respiratory distress Cardiovascular/Chest: normal peripheral pulses, regular rate, rhythm, no edema, no gallop, no JVD, no murmur, JVD Gastrointestinal/Abdominal: normal bowel sounds, non tender, soft, no pulsatile mass Back Exam: no CVA tenderness 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 Dizziness more likely consistent with vertigo but due to hypertensive urgency I will obtain labs, in the EKG, CT head, provide appropriate pharmacotherapy as indicated, continue to monitor/reassess. Disposition will depend on labs, EKG, imaging, and patient's overall clinical course in ED; however, discharge home is expected along with education, follow-up, and possible prescription medication adverse [id number] therapy. 08/06/19 20:22 EKG: read @2005: NSR @ 62, nl axis, intervals wnl, nonspecific ST/T-wave changes. No STEMI. Compared with 11/25/2016 EKG: resolution of AFib with no significant changes concerning for acute ischemia. multiple rechecks patient to ED clinical course. No acute distress vital signs stable throughout with continual improvement in blood pressure. After CT head results concerns for fungal chronic sinusitis I did discuss results with radiology over the phone. She informs that fungal is a consideration due to the density of the sinusitis observed and thus must be considered because of this. I will consult with ENT from [facility]. I have discussed these findings with patient in detail along with critical nature of fungal sinus infections that can indicate the brain causing permanent disability and/or . Patient informs she is too many responsibilities at home with her family and will not accept admission at this time. I discussed case with ENT on the phone,Dr. Wesley, and discussed current radiology findings patient's resistance to admission. He agrees to see patient in his clinic and request her records be f axed to him. I notified RN and provided information to her who will be faxing patient's fascial information along with CT scan findings to Dr. Wesley. Patient is in agreement with this plan. I have given her a dose of amlodipine here in ED as she is early on his circumflex hand nd her heart rate is in the 60s not tolerating beta anny. Blood pressure is under better control she has agreed to call Dr. Wesley clinic first thing in the morning to set up an appointment. I provided her with ED discharge precautions. She will also be keeping a blood pressure log as have instructed her to provide to her PCP. She endorses she will follow up with PCP in the next 1-3 days for alteration of blood pressure dictations and management. Patient will be sent home with meclizine for vertigo as a cause 100% resolution of her symptoms here in ED. - Results/Orders Results/Orders: 08/06/19 20:00 EKG STAT Laboratory Results - last 24 hr 08/06/19 08/06/19 08/06/19 20:17 20:17 20:17 WBC 5.8 RBC 3.95 L Hgb 12.0 Hct 35.6 L MCV 90.1 MCH 30.3 MCHC 33.6 RDW 13.5 Plt Count 290 MPV 8.4 Absolute Neuts (auto) 2.90 Absolute Lymphs (auto) 2.30 Absolute Monos (auto) 0.40 Absolute Eos (auto) 0.10 Absolute Basos (auto) 0.10 Neutrophils % 49.6 Lymphocytes % 40.2 Monocytes % 7.0 Eosinophils % 1.9 Basophils % 1.3 Sodium 130 L Potassium 4.1 Chloride 96 L Carbon Dioxide 24 Anion Gap 14.1 BUN 14 Creatinine 0.82 BUN/Creatinine Ratio 17.1 Random Glucose 117 H Serum Osmolality 262.3 L Calcium 9.1 Troponin I < 0.02 Dictation date: ADDENDUM #1 The findings were verbally discussed via telephone conference with Dr. Zack Strong by Dr. Jayla Duncan on 08/06/2019 9:49 PM CDT .The results were acknowledged and understood. Electronically signed by: Jayla Duncan MD 08/06/2019 9:50 PM CDT - [id number] ORIGINAL REPORT PROCEDURE: CT Head CLINICAL HISTORY: 84 years Female htn urgency, dizziness TECHNIQUE: Contiguous axial CT images obtained through the brain without IV contrast. This CT exam was performed according to our departmental dose-optimization program, which includes one or more of the following dose reduction techniques: automated exposure control, adjustment of the mA and/or kV according to patient size, and/or use of iterative reconstruction technique. COMPARISON: No prior exams provided for comparison. FINDINGS: There is no intracranial hemorrhage, extraaxial collection, or evidence of acute transcortical infarction. Scattered foci of low attenuation within the periventricular and subcortical white matter are most compatible with chronic microvascular disease. The ventricles and sulci are symmetric without midline shift or mass effect. There is severe, chronic- appearing bilateral maxillary sinusitis. Material filling both maxillary sinuses is hyperdense, concerning for fungal infection. The remainder of the paranasal sinuses and mastoid air cells are clear. IMPRESSION: No acute intracranial abnormality. Findings concerning for severe, chronic, possibly fungal, bilateral maxillary sinusitis. Electronically signed by: Jayla Duncan MD 08/06/2019 9:02 PM CDT END ADDENDUM PROCEDURE: CT Head CLINICAL HISTORY: 84 years Female htn urgency, dizziness TECHNIQUE: Contiguous axial CT images obtained through the brain without IV contrast. This CT exam was performed according to our departmental dose-optimization program, which includes one or more of the following dose reduction techniques: automated exposure control, adjustment of the mA and/or kV according to patient size, and/or use of iterative reconstruction technique. COMPARISON: No prior exams provided for comparison. FINDINGS: There is no intracranial hemorrhage, extraaxial collection, or evidence of acute transcortical infarction. Scattered foci of low attenuation within the periventricular and subcortical white matter are most compatible with chronic microvascular disease. The ventricles and sulci are symmetric without midline shift or mass effect. There is severe, chronic- appearing bilateral maxillary sinusitis. Material filling both maxillary sinuses is hyperdense, concerning for fungal infection. The remainder of the paranasal sinuses and mastoid air cells are clear. IMPRESSION: No acute intracranial abnormality. Findings concerning for severe, chronic, possibly fungal, bilateral maxillary sinusitis. Electronically signed by: Jayla Duncan MD 08/06/2019 9:02 PM CDT Departure - Departure Clinical Impression: Uncontrolled hypertension, Vertigo Sinusitis Qualifiers: Sinusitis location: maxillary Chronicity: chronic Qualified Code(s): J32.0 - Chronic maxillary sinusitis Time of Disposition: 22:13 Disposition: Discharge to Home or Self Care Condition: Excellent Departure Forms: ED Discharge - Pt. Copy, Patient Portal Self Enrollment Referrals: BRIE WESLEY [Referring] - 1-5 Days (Call office in the morning (08/07/2019) to setup appointment within the next 7 days; as discussed at bedside.) Chapo Carballo MD [Primary Care Provider] - 1-2 Days (As discussed at bedside; call in the morning (08/07/2019) and setup appointment in the next 1-2 days to discuss changing blood pressure medications.) Prescriptions: Meclizine HCl [Meclizine 25] 25 - 50 mg PO TID PRN #20 tab PRN Reason: Dizziness Home Medications: Ambulatory Orders RX: Aspirin [Baby Aspirin] 81 mg PO DAILY 08/28/13 RX: Telmisartan [Micardis] 80 mg PO DAILY 08/28/13 RX: Ropinirole Hydrochloride [Ropinirole HCl] 1 mg PO TID 11/25/16 Estrogens, Conjugated [Premarin] 1.25 mg PO DAILY 12/30/17 RX: LORazepam [Ativan] 1 tablet PO TID PRN 12/30/17 RX: Omeprazole 20 mg PO BID 07/04/18 Meclizine HCl [Meclizine 25] 25 - 50 mg PO TID PRN #20 tab 08/06/19
[2019-08-06 19:56] VITALS: TEMP 97.1
--- NOTE | 2019-08-06 21:03 | CT ---
PROCEDURE: CT Head CLINICAL HISTORY: 84 years Female htn urgency, dizziness TECHNIQUE: Contiguous axial CT images obtained through the brain without IV contrast. This CT exam was performed according to our departmental dose-optimization program, which includes one or more of the following dose reduction techniques: automated exposure control, adjustment of the mA and/or kV according to patient size, and/or use of iterative reconstruction technique. COMPARISON: No prior exams provided for comparison. FINDINGS: There is no intracranial hemorrhage, extraaxial collection, or evidence of acute transcortical infarction. Scattered foci of low attenuation within the periventricular and subcortical white matter are most compatible with chronic microvascular disease. The ventricles and sulci are symmetric without midline shift or mass effect. There is severe, chronic-appearing bilateral maxillary sinusitis. Material filling both maxillary sinuses is hyperdense, concerning for fungal infection. The remainder of the paranasal sinuses and mastoid air cells are clear. IMPRESSION: No acute intracranial abnormality. Findings concerning for severe, chronic, possibly fungal, bilateral maxillary sinusitis. Electronically signed by: Jayla Duncan MD 08/06/2019 9:02 PM CDT
[2019-08-06] MEDS ORDERED: amLODIPine BESYLATE 5 MG TAB PO ONE (21:39)
[2019-08-06 22:28] VITALS: BP 188/80; O2SAT 96
== END 2019-08-06 22:25 | disposition home or self-care (01) ==
LOC: ER 19:26
DX: I10 Essential (primary) hypertension (principal); R42 Dizziness and giddiness; J32.0 Chronic maxillary sinusitis; F32.9 Major depressive disorder, single episode, unspecified; J44.9 Chronic obstructive pulmonary disease, unspecified; Z87.891 Personal history of nicotine dependence; Z79.82 Long term (current) use of aspirin; Z79.899 Other long term (current) drug therapy; Z88.0 Allergy status to penicillin; Z88.8 Allergy status to other drugs, medicaments and biological substances

== ENCOUNTER → 2019-08-23 | Outpatient (CLI) | payer MEDICARE, OTHER | LOC: LAB.O 12:28 | PROVIDERS: ATTEND Family Medicine | DX: E87.1 Hypo-osmolality and hyponatremia (principal) ==

== ENCOUNTER → 2019-10-26 | Outpatient (CLI) | payer MEDICARE, OTHER ==
--- NOTE | 2019-10-27 15:21 | US ---
EXAM DESCRIPTION: Venous,Lower Extremity LT (accession [id number]), Venous,Lower Extremity RT (accession [id number]): ULTRASOUND. CLINICAL HISTORY: DVT and bilateral lower extremity swelling and redness. COMPARISON: None Available. TECHNIQUE: Two -dimensional and doppler sonographic evaluation of the deep venous system of the bilateral lower extremities. FINDINGS: Doppler evaluation shows normal color flow and normal phasicity and augmentation of the bilateral common femoral veins, junctions with the bilateral proximal saphenous veins, deep femoral veins/femoral vein junctions, femoral veins, popliteal veins, greater saphenous veins junction with the common femoral veins, peroneal anterior tibial posterior tibial veins. These veins showed normal occlusion with transducer pressure. Two-dimensional survey showed no echogenic clot within these veins. IMPRESSION: Duplex ultrasound evaluation of the bilateral lower extremity deep venous systems showing no evidence of thrombosis. Electronically signed by: Victor Hugo Torres MD 10/27/2019 3:20 PM CLOTH GRADER
--- NOTE | 2019-10-27 15:22 | US ---
EXAM DESCRIPTION: Venous,Lower Extremity LT (accession [id number]), Venous,Lower Extremity RT (accession [id number]): ULTRASOUND. CLINICAL HISTORY: DVT and bilateral lower extremity swelling and redness. COMPARISON: None Available. TECHNIQUE: Two -dimensional and doppler sonographic evaluation of the deep venous system of the bilateral lower extremities. FINDINGS: Doppler evaluation shows normal color flow and normal phasicity and augmentation of the bilateral common femoral veins, junctions with the bilateral proximal saphenous veins, deep femoral veins/femoral vein junctions, femoral veins, popliteal veins, greater saphenous veins junction with the common femoral veins, peroneal anterior tibial posterior tibial veins. These veins showed normal occlusion with transducer pressure. Two-dimensional survey showed no echogenic clot within these veins. IMPRESSION: Duplex ultrasound evaluation of the bilateral lower extremity deep venous systems showing no evidence of thrombosis. Electronically signed by: Victor Hugo Torres MD 10/27/2019 3:20 PM TEST AND BALANCE ENGINEER
== END ==
LOC: US 09:33
PROVIDERS: ATTEND Physician Assistant
DX: I87.2 Venous insufficiency (chronic) (peripheral) (principal); I80.10 Phlebitis and thrombophlebitis of unspecified femoral vein; R60.9 Edema, unspecified

== ENCOUNTER 2019-10-27 02:18 | Emergency (ER) | payer MEDICARE, OTHER ==
[2019-10-27] MEDS ORDERED: SODIUM CHLORIDE 0.9% (FLUSH) 10 ML SYG IV PRN (02:35)
[2019-10-27] MEDS ORDERED: NITROGLYCERIN 2% 1 GM UD TOP ONE (02:37)
[2019-10-27] MEDS ORDERED: ONDANSETRON INJ 4 MG/2 ML VIAL IV ONE (02:38)
--- NOTE | 2019-10-27 03:35 | RAD ---
CHEST, ONE VIEW XR CLINICAL HISTORY: chest pain COMPARISON: 11/25/2016 TECHNIQUE: AP Chest. FINDINGS: Heart is normal in size. Mild aortic atherosclerosis. Pulmonary vascularity appears normal. There is no consolidation. Pleural spaces are clear. Mild dextro convex upper thoracic curve. Normal soft tissues. Surgical clips in the upper abdomen appears IMPRESSION: 1. No acute chest disease. Electronically signed by: Velia Gonzalez DO 10/27/2019 3:34 AM [facility]
--- NOTE | 2019-10-27 05:24 | ED.PDOC ---
History of Present Illness - General Source: patient, RN notes reviewed Exam Limitations: no limitations - History of Present Illness Initial Comments: Patient is an 84-year-old white female who presents with complaints of chest pain. Patient has been having this aching pain, off and on for the last few weeks. It awoke her from sleep this evening. It was improved with nitroglycerin via EMS. The pain radiates up through her lower chest and through her back. Patient denies any shortness of breath, nausea, vomiting, diaphoresis. Patient's last stress test, chemical, 6 months ago, was normal.Patient denies any headache, nausea, vomiting, diarrhea, shortness of breath.The pain was moderate in severity. Improved with nitroglycerin, nothing seems to make it worse. Timing/Duration: 1-3 hours Severity/Quality: moderate, other - Aching Location: substernal Chest Pain Radiation: back Activities at Onset: none Prior Chest Pain/Cardiac Workup: cardiolye scan, stress test Improving Factors: medication - Nitroglycerin Worsening Factors: nothing Nitro Today/Relief: 0.4 mg x 1 Aspirin Treatment Today: 81 mg x 4 Associated Symptoms: denies symptoms <Duc Casey - Last Filed: 10/27/19 06:58> <OMAR BARBER - Last Filed: 10/27/19 09:59> - General Chief Complaint: Chest Pain/WA Stated Complaint: chest pain Time Seen by Provider: 10/27/19 02:35 - History of Present Illness Allergies/Adverse Reactions: Allergies Penicillin G Allergy (Verified 10/27/19 06:32) Procaine [From Novocain] Allergy (Verified 10/27/19 06:32) Home Medications: Ambulatory Orders Aspirin [Baby Aspirin] 81 mg PO DAILY 08/28/13 Telmisartan [Micardis] 80 mg PO DAILY 08/28/13 Ropinirole Hydrochloride [Ropinirole HCl] 1 mg PO TID 11/25/16 Estrogens, Conjugated [Premarin] 1.25 mg PO DAILY 12/30/17 LORazepam [Ativan] 1 tablet PO TID PRN 12/30/17 Omeprazole 20 mg PO BID 07/04/18 Meclizine HCl [Meclizine 25] 25 - 50 mg PO TID PRN #20 tab 08/06/19 Review of Systems - Review of Systems Constitutional: States: no symptoms reported, see HPI EENTM: States: no symptoms reported Respiratory: States: no symptoms reported, see HPI Cardiology: States: see HPI, chest pain. Denies: palpitations, syncope Gastrointestinal/Abdominal: States: no symptoms reported. Denies: abdominal pain, constipation, diarrhea, nausea, vomiting Genitourinary: States: no symptoms reported Musculoskeletal: States: no symptoms reported Skin: States: no symptoms reported Neurological: States: no symptoms reported Endocrine: States: no symptoms reported Hematologic/Lymphatic: States: no symptoms reported All other Systems: Reviewed and Negative <Duc Casey - Last Filed: 10/27/19 06:58> Past Medical History (General) - Patient Medical History Hx Seizures: No Hx Stroke: No Hx Asthma: No Hx of COPD: Yes Hx Cardiac Disorders: No Hx Congestive Heart Failure: No Hx Pacemaker: No Hx Hypertension: Yes Hx Thyroid Disease: No Hx Diabetes: No Hx Gastroesophageal Reflux: No Hx Renal Disease: No Hx Cancer: No Hx Hepatitis C: No Hx MRSA: No Surgical History: other - Vaccination History Hx Tetanus, Diphtheria Vaccination: No Hx Influenza Vaccination: Yes Hx Pneumococcal Vaccination: Yes - Social History Hx Tobacco Use: Yes Hx Alcohol Use: No Hx Substance Use: No Hx Substance Use Treatment: Yes Hx Depression: Yes Hx Physical Abuse: No Hx Emotional Abuse: No <Duc Casey - Last Filed: 10/27/19 06:58> Family Medical History - Family History Mother Family History: No Known Age (years): 83 Living Status: Cause of : old age Hx Cardiac Disease: Yes <Duc Casey - Last Filed: 10/27/19 06:58> Physical Exam - Physical Exam General Appearance: Alert, Anxious, Well Developed, Well Groomed, Well Hydrated, Well Nourished Eyes, Ears, Nose, Throat Exam: PERRL/EOMI, normal ENT inspection, pharynx normal Neck: non-tender, full range of motion, supple, normal inspection Respiratory: chest non-tender, lungs clear, normal breath sounds, no respiratory distress, no accessory muscle use Cardiovascular/Chest: normal peripheral pulses, regular rate, rhythm, no edema, no gallop, no JVD, no murmur Peripheral Pulses: radial,right: 2+, radial,left: 2+ Gastrointestinal/Abdominal: normal bowel sounds, non tender, soft, no organomegaly, no pulsatile mass Extremity: normal range of motion, non-tender, normal inspection, no pedal edema, no calf tenderness 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 10/27/19 05:31 Patient's chest pain resolved after nitroglycerin. Remainder of the labs are unremarkable. Plan on discussing with patient's mat machine operator need for admission. 10/27/19 05:40 Patient's mat machine operator, [facility] Whitmore at [facility] is her mat machine operator. I do have a call into him to discuss this patient. 10/27/19 06:55 Still awaiting callback from Dr. Whitmore. Patient's care will be turned over to Dr. Barber at [address] Barber. - Results/Orders Results/Orders: 10/27/19 02:35 IV Care:Saline Lock per Protoc QSHIFT Telemetry ONCE Sodium Chloride 0.9% (Flush) [Saline Flush Syringe] 3 ml IV PRN PRN Oxygen Stat 10/27/19 02:45 CARDIAC PANEL,ER Stat COMPLETE METABOLIC PROFILE Stat EKG STAT 10/27/19 09:00 Pulse Ox Daily Laboratory Results - last 24 hr 10/27/19 10/27/19 10/27/19 02:45 02:45 05:13 WBC 4.2 L RBC 4.10 L Hgb 12.4 Hct 37.8 MCV 92.2 MCH 30.3 MCHC 32.8 L RDW 13.9 Plt Count 303 MPV 9.6 Absolute Neuts (auto) 3.40 Absolute Lymphs (auto) 0.60 L Absolute Monos (auto) 0.10 L Absolute Eos (auto) 0.00 Absolute Basos (auto) 0.10 Neutrophils % 82.1 H Lymphocytes % 14.6 L Monocytes % 2.0 Eosinophils % 0.0 L Basophils % 1.3 PT 8.9 L INR 0.95 PTT (SP) 23.6 Sodium 135 Potassium 3.7 Chloride 101 Carbon Dioxide 22 Anion Gap 15.7 BUN 11 Creatinine 0.66 BUN/Creatinine Ratio 16.7 Random Glucose 168 H Serum Osmolality 273.4 L Calcium 9.6 Magnesium 1.9 Total Bilirubin 0.4 AST 22 ALT 16 Alkaline Phosphatase 92 Creatine Kinase 41 CK-MB (CK-2) 2.6 CK-MB (CK-2) % Not Reportable Troponin I < 0.02 Serum Total Protein 7.7 Albumin 4.1 Globulin 3.6 H Albumin/Globulin Ratio 1.1 Urine Color Yellow Urine Appearance Clear Urine pH 7.0 Ur Specific [place] 1.015 Urine Protein Negative Urine Glucose (UA) Negative Urine Ketones Trace Urine Blood Negative Urine Nitrite Negative Urine Bilirubin Negative Urine Urobilinogen 0.2 Ur Leukocyte Esterase Negative Urine RBC 0 Urine WBC 0-1 Ur Epithelial Cells 5-10 Urine Bacteria 0 EKG performed on 27 October 2019 at 022 4 hours: Sinus tachycardia at 106 bpm, normal axis deviation, nonspecific ST and T wave changes, abnormal EKG. No old EKG for comparison. CHEST, ONE VIEW XR CLINICAL HISTORY: chest pain COMPARISON: 11/25/2016 TECHNIQUE: AP Chest. FINDINGS: Heart is normal in size. Mild aortic atherosclerosis. Pulmonary vasc ularity appears normal. There is no consolidation. Pleural spaces are clear. Mild dextro convex upper thoracic curve. Normal soft tissues. Surgical clips in the upper abdomen appears IMPRESSION: 1. No acute chest disease. Electronically signed by: Velia Gonzalez DO 10/27/2019 3:34 AM <Duc Casey - Last Filed: 10/27/19 06:58> - Progress Progress: 10/27/19 07:50 Pt is chest pain free. Second troponin is also negative. Still waiting for call back. Pt and family is wanting to go home. Explained that we will wait for Dr. Whitmore and consult with him before making that decision. 10/27/19 08:39 Discussed with RN that we need to try and get a hold of Dr. Whitmore again to arrange either transfer or dispo. 10/27/19 08:46 spoke with the on-call physician for Dr. Whitmore, he recommends transfer to [facility] for further workup. 10/27/19 09:24 Dr. Mcdaniel called back and report given to him. Dr. Colunga is aware of the transfer. <OMAR BARBER - Last Filed: 10/27/19 09:59> Departure <NeftalytrinyDuc - Last Filed: 10/27/19 06:58> - Departure Time of Disposition: 09:58 <OMAR BARBER - Last Filed: 10/27/19 09:59> - Departure Clinical Impression: Unstable angina Chest pain Qualifiers: Chest pain type: chest pain due to myocardial ischemia Ischemic chest pain type: unstable angina pectoris Qualified Code(s): I20.0 - Unstable angina Disposition: Transfer to Hospital Condition: Good Departure Forms: ED Discharge - Pt. Copy, Patient Portal Self Enrollment Instructions: DI for Chest Pain Referrals: Chapo Carballo MD [Primary Care Provider] - 1-2 Weeks Home Medications: Ambulatory Orders Aspirin [Baby Aspirin] 81 mg PO DAILY 08/28/13 Telmisartan [Micardis] 80 mg PO DAILY 08/28/13 Ropinirole Hydrochloride [Ropinirole HCl] 1 mg PO TID 11/25/16 Estrogens, Conjugated [Premarin] 1.25 mg PO DAILY 12/30/17 LORazepam [Ativan] 1 tablet PO TID PRN 12/30/17 Omeprazole 20 mg PO BID 07/04/18 Meclizine HCl [Meclizine 25] 25 - 50 mg PO TID PRN #20 tab 08/06/19 Transfer to Outside Facility - Transfer Information Decision to Transfer Date: 10/27/19 Decision to Transfer Time: 09:26 Reason for Transfer: specialized care not available <OMAR BARBER - Last Filed: 10/27/19 09:59>
[2019-10-27 08:09] VITALS: O2SAT 98
[2019-10-27 09:51] VITALS: BP 152/64; TEMP 98.3
== END 2019-10-27 10:15 | disposition short-term general hospital (02) ==
LOC: ER 02:18
DX: I20.0 Unstable angina (principal); J44.9 Chronic obstructive pulmonary disease, unspecified; I10 Essential (primary) hypertension; F32.9 Major depressive disorder, single episode, unspecified; Z87.891 Personal history of nicotine dependence; Z79.899 Other long term (current) drug therapy; Z88.0 Allergy status to penicillin; Z88.8 Allergy status to other drugs, medicaments and biological substances; Z79.82 Long term (current) use of aspirin
CPT/HCPCS: 71045; 80048; 80076; 81001; 82550; 82553; 84484; 85025; 85610; 85730; 93005; J2405

== ENCOUNTER → 2020-06-30 | Outpatient (CLI) | payer MEDICARE, OTHER | END | disposition home or self-care (01) | LOC: GMAM 15:29 | PROVIDERS: ATTEND Family Medicine | DX: D64.9 Anemia, unspecified (principal); E53.8 Deficiency of other specified B group vitamins; E78.2 Mixed hyperlipidemia; E55.9 Vitamin D deficiency, unspecified ==

== ENCOUNTER → 2020-12-29 | Outpatient (CLI) | payer MEDICARE, OTHER | LOC: GMAM 17:24 | PROVIDERS: ATTEND Family Medicine | DX: E53.8 Deficiency of other specified B group vitamins (principal); R53.82 Chronic fatigue, unspecified; I10 Essential (primary) hypertension; E78.2 Mixed hyperlipidemia; F34.1 Dysthymic disorder ==